=== PATIENT | male | born 1950 | race American Indian/Alaskan Native ===

== ENCOUNTER 2020-07-09 10:11 | Outpatient (CLI) | payer MEDICARE ==
--- NOTE | 2020-07-09 12:07 | Ultrasound Report ---
ULTRASOUND RENAL INDICATION / CLINICAL INFORMATION: CHRONIC KIDNEY DISEASE,STAGE 3. COMPARISON: None available. FINDINGS: RIGHT KIDNEY: Length = 12.9 cm. [normal > 9 cm] - Parenchymal Thickness = 1.5 cm. [normal > 1.5 cm] - Echogenicity: Normal. - Hydronephrosis: None. - Cyst or mass: Simple cyst measuring 4.8 x 5.1 x 5.0 cm is seen in the upper pole of the right kidne y. - Stones: None seen. LEFT KIDNEY: Length = 10.9 cm. [normal > 9 cm] - Parenchymal Thickness = 2.1 cm. [normal > 1.5 cm] - Echogenicity: Normal. - Hydronephrosis: None. - Cyst or mass: No significant abnormality. - Stones: None seen. URINARY BLADDER: No significant abnormality. FREE FLUID: None. ADDITIONAL FINDINGS: None. IMPRESSION: 1. Simple cyst measured in the upper pole of the right kidney, as above. Scribed by: Diane Guzman RDMS, T Scribed: 07/09/2020 10:47 AM Signer Name: Lazaro Hankins MD Signed: 07/09/2020 12:03 PM Workstation Name: [id number]
== END 2020-07-09 10:12 | disposition home or self-care (01) ==
LOC: US 10:11
PROVIDERS: ATTEND Specialist
DX: N28.1 Cyst of kidney, acquired (principal); N18.31 Chronic kidney disease, stage 3a
CPT/HCPCS: 76770